=== PATIENT | female | born 1960 | race Two or more races ===

== ENCOUNTER 2023-08-04 10:18 | Outpatient (CLI) | payer OTHER ==
--- NOTE | 2023-08-05 08:27 | SLEEP CARE CONSULTATION ---
Information from patient questionnaire entered by Reese Park. I have reviewed and concur with the information entered by Reese Park. This document represents the service I personally performed and the decisions made by me, Tate De Anda MD, [facility]. History of Present Illness Service Date and Time: 08/04/2023 1018 Reason for Visit: New patient Chief Complaint: reports: Insomnia, Unrefreshed sleep, Fatigue, Frequent awakenings at night Date of Onset: SINCE I WAS 20 Usual bedtime: 7-10PM Time it takes to fall asleep: SOMETIMES RIGHT AWAY Observed to quit breathing while asleep: No Sleeps alone due to snoring: No Number of times waking at night: 1-3 Reasons for waking at night: reports: Other (UNKNOWN) Toss, Turn, or Twitch while sleeping: No Recalls having dreams: Yes Usually gets out of bed at: 5-30AM Feels refreshed in the morning: No Morning headache: No Sleepy or fatigued during the day: Yes Ever fallen asleep while driving: No Takes day naps: No Dreams during day naps: Yes Prior sleep studies: No Additional HPI information: I had the pleasure of seeing Ms. Dick today regarding the possibility of him having a sleep disorder. As you know, she is a 62-year-old woman who complains of insomnia since she was 20 years old. She said she always could get by with 5 6 hours of sleep. Recently, she had pneumonia and required surgery to remove the infection. Her loading unit operator recommended a sleep study afterward to see if she has obstructive sleep apnea-hypopnea. The patient tells me that she normally goes to bed around 7 - 10 pm, and it takes her approximately just a few minutes to fall asleep. She has been told that she snores loudly and irregularly at night. She has never been observed to stop breathing in her sleep. er sleeps in the same bed. She can recall waking up on the average of 1 - 3 times during the night. Most of the time she wakes up because of unknown reason. She has never awakened because of her own snoring, choking, or having to gasp for air. There is not a lot of tossing and turning in her sleep. She has somniloquy (sleep talking) but not somnambulism (sleep walking). Generally, she can recall having dreams. In the morning she usually gets up out of the bed around 5:30 a.m. not feeling refreshed nor rested. She usually does not have a morning headache. During the day she complains of feeling sleepy and fatigued. Her score on [place] Sleepiness Scale is 10 out of 24. She never has fallen asleep while driving nor has had any accident due to sleepiness. She usually does not take naps during the day. She denies having impaired concentration during the day. 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 Patient is and lives in . Have you smoked in the past 12 months: No Alcohol use: No Caffeine use: No Family History Family history of sleep disordered breathing: Yes Family Hx Sleep Apnea: Sibling: Snoring Allergies and Home Medications Known drug allergies: No Drug allergies reviewed: Yes Home medication list reviewed: Yes Allergy and home medication list: Allergies No Known Drug Allergies Allergy (Verified 07/30/23 15:15) Home Medications Amitriptyline [Elavil] See Rx Instructions .ROUTE .COMPLEX 07/30/23 [History Confirmed 07/30/23] Cetirizine [ZyrTEC] See Rx Instructions .ROUTE .COMPLEX 07/30/23 [History Confirmed 07/30/23] Review of Systems Weight loss over past 5 years: 20 Cardiovascular: denies: high blood pressure, palpitations, chest pain, irregular heart rate or pulse, leg or foot swelling, have to sleep sitting up, other Respiratory: reports: wheeze, sputum production Gastrointestinal: denies: heartburn, difficulty swallowing, nausea, vomitting, diarrhea, abdominal pain, other Urinary: denies: incontinence, frequency, urgency, impotence, other Neurological: reports: gait or balance problems Psychiatric: denies: Attention Deficit Hyperactivity, anxiety, depression, mood disorder, claustrophobia, other Ear/Nose/Throat: reports: nasal congestion, dry mouth/throat Endocrine: reports: sluggishness, too hot or cold Musculoskeletal: reports: neck pain, back pain, muscle pain or cramping Immunologic: reports: sneezing, rash, itching Physical Exam Vital signs obtained and entered by: REESE Pitts MA Blood Pressure: 137/80 (RIGHT ARM) Cuff size: regular Heart Rate: 69 O2 Saturation: 99 Height: 4 ft 0.75 in Weight: 183 lb 12.8 oz Body Mass Index: 54.3 BMI Classification: Morbidly Obese Neck circumference: 16.5 Mood/affect: Normal HEENT: No craniofacial malformation Nostrils: patent to airflow Turbinates: normal Septum: midline Mouth and throat: narrow oropharynx Soft palate: long Hard palate: normal Uvula: normal Uvula visualization: 25% Mallampati Class III Tongue: normal in size Tonsils: small Chin and jaw: normal size and position Neck: normal w/o lymphadenopathy or thyromegaly Heart: regular rate and rhythm Lungs: clear bilaterally Extremities: no edema or clubbing Neurologic: intact Impression and Plan IMPRESSION: 1. Obstructive Sleep Apnea-Hypopnea Syndrome, as evident by history of loud and irregular snoring, unrefreshed sleep, and daytime hypersomnolence. Narrow oropharynx and obesity are common predisposing factors for obstructive sleep apnea-hypopnea syndrome. I recommend proceeding to polysomnography to confirm the diagnosis and to assess severity. I informed the patient of what the sleep studies involve and after some discussion, she agreed to proceed. Plan: 1. Schedule polysomnography and return in 1 to 2 weeks after the study to discuss result and initiate therapy. 2. Avoid long distance driving or when feeling sleepy. 3. Avoid alcohol, sedative and muscle relaxant around bedtime. 4. Attempt to lose weight. Counseling Topics: Weight control Follow up with Sleep Care in: 1-2 months Follow up recommended for: Weight management Visit Type: In Office Time Spent with Patient (minutes): 15 Provider Statement: I spent 100% of the Face to Face Visit with the patient with greater than 50% spent counseling the patient and coordination of care.
[2023-08-05 08:28] VITALS: BP 137/80; O2SAT 99
== END 2023-08-04 10:19 | disposition home or self-care (01) ==
LOC: SC 10:18
PROVIDERS: ATTEND Internal Medicine Pulmonary Disease
DX: R06.83 Snoring (principal); G47.8 Other sleep disorders; G47.10 Hypersomnia, unspecified; E66.01 Morbid (severe) obesity due to excess calories; Z68.43 Body mass index [BMI] 50.0-59.9, adult
CPT/HCPCS: 99202; 99212

== ENCOUNTER 2023-08-31 20:13 | Outpatient (CLI) | payer OTHER | END 2023-08-31 20:14 | disposition home or self-care (01) | LOC: SC 20:13 | PROVIDERS: ATTEND Internal Medicine Pulmonary Disease | DX: G47.33 Obstructive sleep apnea (adult) (pediatric) (principal); E66.9 Obesity, unspecified; Z68.35 Body mass index [BMI] 35.0-35.9, adult | CPT/HCPCS: 95810 ==

== ENCOUNTER 2023-09-22 13:55 | Outpatient (CLI) | payer OTHER ==
--- NOTE | 2023-09-22 20:44 | SLEEP CARE CONSULTATION ---
Information from patient questionnaire entered by Reese Park. I have reviewed and concur with the information entered by Reese Park. This document represents the service I personally performed and the decisions made by me, Tate De Anda MD, [facility]. History of Present Illness Service Date and Time: 09/22/2023 1355 Initial [place] Sleepiness Scale score: 10 Current [place] Sleepiness Scale score: 12 (09/22/23) Additional HPI information: Ms. Dick returned for follow up of the sleep study she had on 08/31/2023. The polysomnography showed that the patient had reduced sleep efficiency due to sleep onset insomnia and frequent awakenings during the night. The sleep architecture was abnormal for sleep fragmentation and reduced amount of time spent in slow wave sleep (N3). Respiratory monitoring showed mild obstructive sleep apnea-hypopnea (AHI = 8.6) associated with frequent arousals, oxyhemoglobin desaturation and mild hypoxia (chai oxygen saturation of 83%). The respiratory events occurred mainly during REM sleep. The patient only slept supine during this study (supine AHI = 8.6; non-supine = 0.00). Snore was light in intensity. There was no significant periodic leg movement of sleep. Cardiac rhythm was normal sinus rhythm without significant arrhythmia. No abnormal behavior (parasomnia) observed during the night. The patient was informed of these findings. I explained to her the pathophysiology behind obstructive sleep apnea. We then spent quite a bit of time discussing different treatment options. For mild obstructive sleep apnea, surgery and oral appliance are alternatives to nasal CPAP therapy but in moderate or severe cases, nasal CPAP is the most effective and reliable treatment. After some discussion, she opted to go with the nasal CPAP therapy. I explained to her how CPAP machine works and what to expect when using the machine. She is somewhat familiar with the treatment because her nlchie-ou-ohk uses a CPAP. Sleep Study - Results Type of Sleep Study: Polysomnography (COMPLETED 08/31/23) Prior sleep studies: No Allergies and Home Medications Drug allergies reviewed: Yes Home medication list reviewed: Yes Allergy and home medication list: Allergies No Known Drug Allergies Allergy (Verified 08/04/23 10:22) Review of Systems Review of systems same as previous: Yes (NO CHANGE) Physical Exam Vital signs obtained and entered by: REESE Pitts MA Blood Pressure: 135/88 (LEFT ARM) Cuff size: regular Heart Rate: 73 O2 Saturation: 100 Height: 4 ft 0.75 in Weight: 184 lb 6.4 oz Body Mass Index: 54.5 BMI Classification: Morbidly Obese Impression and Plan IMPRESSION: 1. Obstructive Sleep Apnea-Hypopnea Syndrome, mild, associated with mild hypoxemia and sleep fragmentation. Possibly, this is the cause of the patients symptoms of frequent awakenings, unrefreshed sleep, and excessive daytime sleepiness. As mentioned above, the patient will return for a manual CPAP/BiPAP titration study. PLAN: 1. Schedule a manual CPAP/BiPAP titration study. 2. Attempt to lose weight. 3. Return for follow up after the sleep study. I will prescribe her a CPAP at that time. Counseling Topics: Weight control Follow up with Sleep Care in: 1-2 months Follow up recommended for: Weight management Plan: CPAP titration study Visit Type: In Office Time Spent with Patient (minutes): 15 Provider Statement: I spent 100% of the Face to Face Visit with the patient with greater than 50% spent counseling the patient and coordination of care.
[2023-09-22 20:52] VITALS: BP 135/88; O2SAT 100
== END 2023-09-22 13:56 | disposition home or self-care (01) ==
LOC: SC 13:55
PROVIDERS: ATTEND Internal Medicine Pulmonary Disease
DX: G47.33 Obstructive sleep apnea (adult) (pediatric) (principal); E66.01 Morbid (severe) obesity due to excess calories; Z68.43 Body mass index [BMI] 50.0-59.9, adult
CPT/HCPCS: 99212

== ENCOUNTER 2023-11-02 20:45 | Outpatient (CLI) | payer OTHER | END 2023-11-02 20:46 | disposition home or self-care (01) | LOC: SC 20:45 | PROVIDERS: ATTEND Internal Medicine Pulmonary Disease | DX: G47.33 Obstructive sleep apnea (adult) (pediatric) (principal) | CPT/HCPCS: 95811 ==

== ENCOUNTER 2023-12-01 10:06 | Outpatient (CLI) | payer OTHER ==
--- NOTE | 2023-12-01 12:16 | SLEEP CARE CONSULTATION ---
Information from patient questionnaire entered by Reese Park. I have reviewed and concur with the information entered by Reese Park. This document represents the service I personally performed and the decisions made by me, Tate De Anda MD, [facility]. History of Present Illness Service Date and Time: 12/01/2023 1006 Initial [place] Sleepiness Scale score: 10 Current [place] Sleepiness Scale score: 13 (12/01/23) Additional HPI information: Ms. Dick returned for follow up of the manual CPAP/BiPAP titration study she had on 08/31/2023. The study showed CPAP was initiated at 7 cmH2O and titrated up to CPAP at 14 cmH2O. CPAP at 13 cmH2O appeared to be optimal (AHI of 0.8 per hour on the pressure). There was supine REM sleep on the pressure. Oxygen saturation was normal throughout the night. Lower CPAP settings appeared adequa te as well. The patient appeared to have tolerated positive airway pressure therapy very well. The patients sleep efficiency was normal. The sleep architecture was slightly abnormal for mild sleep fragmentation. There was no significant periodic leg movement of sleep. Cardiac rhythm was normal sinus rhythm without significant arrhythmia. No abnormal behavior (parasomnia) observed during the night. The patient was informed of these findings. The patient said she slept very well with the CPAP. However, she does not think that the medium size ResMed F30 fits right. She would like the small. ROS: Same as previous. Sleep Study - Results Type of Sleep Study: Polysomnography (COMPLETED 08/31/23 TITRATION COMPLETED 11/02/23) Prior sleep studies: No Allergies and Home Medications Drug allergies reviewed: Yes Home medication list reviewed: Yes Allergy and home medication list: Allergies No Known Drug Allergies Allergy (Verified 09/22/23 13:58) Review of Systems Review of systems same as previous: Yes (NO CHANGE) Physical Exam Vital signs obtained and entered by: REESE Ptits MA Blood Pressure: 149/86 (RIGHT ARM) Cuff size: regular Heart Rate: 79 O2 Saturation: 99 Height: 4 ft 0.75 in Weight: 188 lb 6.4 oz Body Mass Index: 55.7 BMI Classification: Morbidly Obese Impression and Plan IMPRESSION: 1. Obstructive Sleep Apnea-Hypopnea Syndrome, mild (AHI was 8.6), effectively controlled with CPAP at 13 cmH2O. As mentioned above, the patient will return for a manual CPAP/BiPAP titration study. 8 13 cmH2O. PLAN: 1. Prescription made for an autoCPAP, heated humidifier, and related supplies through [employer] 2. Try a ResMed N30i mask 3. A ResMed F30 full face mask size small given to her. 4. Try to lose weight. 5. Return for follow up after one month of using the CPAP. Mask provided: Yes Counseling Topics: Weight loss health impact Prescriptions: Auto CPAP Follow up with Sleep Care in: 1-2 months Follow up recommended for: Weight management Visit Type: In Office Time Spent with Patient (minutes): 15 Provider Statement: I spent 100% of the Face to Face Visit with the patient with greater than 50% spent counseling the patient and coordination of care.
[2023-12-01 12:20] VITALS: BP 149/86; O2SAT 99
== END 2023-12-01 10:07 | disposition home or self-care (01) ==
LOC: SC 10:06
PROVIDERS: ATTEND Internal Medicine Pulmonary Disease
DX: G47.33 Obstructive sleep apnea (adult) (pediatric) (principal); E66.01 Morbid (severe) obesity due to excess calories; Z68.43 Body mass index [BMI] 50.0-59.9, adult
CPT/HCPCS: 99212

== ENCOUNTER 2024-02-23 09:30 | Outpatient (CLI) | payer OTHER ==
--- NOTE | 2024-02-23 09:51 | SLEEP CARE CONSULTATION ---
Information from patient questionnaire entered by Marga Park. I have reviewed and concur with the information entered by Marga Park. This document represents the service I personally performed and the decisions made by me, Tate De Anda MD, [facility]. History of Present Illness Service Date and Time: 02/23/2024929 Reason for follow up: first compliance Equipment type: CPAP (RESMED CPAP NEEDED) Prior sleep studies: No Type of Sleep Study: Polysomnography (COMPLETED 08/31/23 TITRATION COMPLETED 11/02/23) HPI additional information: Ms. Dick returned today for follow up of nasal CPAP therapy. She was diagnosed to have mild obstructive sleep apnea-hypopnea syndrome. The patient went to [employer] for the equipment and was fitted with a nasal mask. She reports using the device nightly and all through the night. The compliance report shows usage in 56 nights out of the past 60 nights, averaging 7.5 hours a night. She complained of no particular problem with the device such as soreness on the face, dry nose, epistaxis, nasal congestion or headache. She thinks that the pressure of 8 - 13 cmH2O is comfortable. On the CPAP therapy she notices improvement in her sleep quality, and that she wakes up feeling fresher in the morning and more awake/alert during the day. The [place] Sleepiness Scale score 6. Her notices no snore at all. The average residual AHI is 2.5; and air leak, 5.3 L/min. The 90th percentile pressure is 10.7 cmH2O. Sleep Study - Results Type of Sleep Study: Polysomnography (COMPLETED 08/31/23 TITRATION COMPLETED 11/02/23) Prior sleep studies: No Subjective Initial [place] Sleepiness Scale score: 10 Current [place] Sleepiness Scale score: 6 (02/23/24) Allergies and Home Medications Drug allergies reviewed: Yes Home medication list reviewed: Yes Allergy and home medication list: Allergies No Known Drug Allergies Allergy (Verified 02/17/24 07:46) Review of Systems Review of systems same as previous: Yes (NO CHANGE) Physical Exam Vital signs obtained and entered by: JAMILAH Pitts MA Blood Pressure: 146/98 (LEFT ARM) Cuff size: long Heart Rate: 83 O2 Saturation: 99 Height: 5 ft 3 in Weight: 196 lb 12.8 oz Body Mass Index: 34.8 BMI Classification: Obese Impression and Plan IMPRESSION: 1. Obstructive Sleep Apnea-Hypopnea Syndrome, mild (AHI = 8.6), with the patient doing well on nasal CPAP therapy. She has excellent compliance and significant clinical improvement. The current pressure appears effective and comfortable. Overall, she is very satisfied with the treatment and plans to continue with it long-term. No adjustment is necessary today. PLAN: 1. Continue with nasal CPAP therapy set at 8 - 13 cmH2O. 2. Try to lose weight 3. Return in one year for follow up or earlier if there is any problem with the treatment. Counseling Topics: Weight control Follow up with Sleep Care in: 1 year Visit Type: In Office Time Spent with Patient (minutes): 15 Provider Statement: I spent 100% of the Face to Face Visit with the patient with greater than 50% spent counseling the patient and coordination of care.
[2024-02-23 09:57] VITALS: BP 146/98; O2SAT 99
== END 2024-02-23 09:31 | disposition home or self-care (01) ==
LOC: SC 09:30
PROVIDERS: ATTEND Internal Medicine Pulmonary Disease
DX: G47.33 Obstructive sleep apnea (adult) (pediatric) (principal); E66.9 Obesity, unspecified; Z68.34 Body mass index [BMI] 34.0-34.9, adult
CPT/HCPCS: 99212